=== PATIENT | female | born 1990 | race Caucasian/White ===

== ENCOUNTER 2016-11-04 17:27 | Emergency (ER) | payer OTHER ==
[~2016-11-04] VITALS: Ht 165.1 cm; Wt 56.6 kg
[2016-11-04 18:30] LABS: HEMATOCRIT 38.4 % (36.0-46.0); MCH 30.2 PG (29.0-34.0); MCHC 35.7 G/DL (30.0-36.0); MCV 84.8 FL (83-99); MEAN PLAT.VOLUME 10.1 uM^3 (9.5-12.4); PLATELET COUNT 127 K/uL (156-360); RBC DIS.WIDTH-CV 11.9 % (11.8-14.6); RBC DIS.WIDTH-SD 36.3 % (39-53); RED BLOOD COUNT 4.53 M/uL (3.80-5.20); WHITE BLOOD COUNT 7.4 K/uL (4.1-10.2)
[2016-11-04 18:44] LABS: ADD MIUA? YES; BILIRUBIN NEGATIVE; BLOOD MODERATE; COLOR YELLOW ((YELLOW)); GLUCOSE (STRIP) NEGATIVE; KETONES 5; LEUKOCYTES TRACE; NITRITE NEGATIVE; PROTEIN (STRIP) 100; SPECIFIC GRAVITY 1.029 (1.000-1.030); UROBILINOGEN 0.2 MG/DL (0.2-1.0)
[2016-11-04 18:44] LABS: CHLORIDE 107 mEq/L (99-109); POTASSIUM 3.8 mEq/L (3.7-5.4); SODIUM 138 mEq/L (136-147)
[2016-11-04 18:46] LABS: GLUCOSE 128 mg/dL (70-99)
[2016-11-04 18:48] LABS: ANION GAP 7 MEQ/L (2-14)
[2016-11-04 18:50] LABS: ALKALINE PHOSPHATASE 57 IU/L (3-129); GFR ESTIMATE (CALCULATED) > 59 mL/min/
[2016-11-04 18:51] LABS: UREA NITROGEN (BUN) 10 mg/dL (9-23)
[2016-11-04 18:53] LABS: LIPASE 12 U/L (1.0-51.0)
[2016-11-04 18:59] LABS: QUANTITATIVE HCG 69.7 MIU/ML
[2016-11-04 19:20] LABS: BACTERIA NONE SEEN /HPF; EPITHELIAL CELLS RARE /HPF; MUCUS 1+ /LPF; RED BLOOD CELLS 0-5 /HPF (0-5); UCUL ADDED? NO
[2016-11-04] MEDS ORDERED: VIBRAMYCIN100 MG PO (20:47)
[2016-11-04] MEDS ORDERED: NORCO 5/3251 TABLET PO (20:47)
[2016-11-05] MEDS ORDERED: GLUCOPHAGE XR,500 MG PO (00:03)
[2016-11-05] MEDS ORDERED: PROVERA,CYCRIN10 MG PO (00:04)
[2016-11-05] MEDS ORDERED: PRENATAL TABLE1 EAC3 PO (00:04)
[2016-11-05] MEDS ORDERED: ADVIL200 MG PO (00:06)
[2016-11-05 01:28] VITALS: BP 110/59
== END 2016-11-05 01:30 | disposition home or self-care (01) ==
LOC: RME 17:27 → EME 17:27 → RME 11-05 01:30
PROVIDERS: Physician Assistant Medical
DX: O03.0 Genital tract and pelvic infection following incomplete spontaneous abortion (principal); O03.4 Incomplete spontaneous abortion without complication
CPT/HCPCS: 76801; 76857; 80053; 81003; 83605; 83690; 84702; 85027; 87040; 88305; 99281; 99285; J0696; J2270; J7030

== ENCOUNTER 2017-11-27 07:52 | Inpatient (IN) | payer OTHER ==
[~2017-11-27] VITALS: Ht 165.1 cm; Wt 76.7 kg
[2017-11-27] VITALS (10 sets, daily range): BP systolic 118–138; BP diastolic 73–88
[~2017-11-27 07:52] MED LIST: ADVIL200 MG PO; GLUCOPHAGE XR,500 MG PO; NORCO 5/3251 TABLET PO; PRENATAL TABLE1 EAC3 PO; PROVERA,CYCRIN10 MG PO; VIBRAMYCIN100 MG PO
[2017-11-27 10:27] LABS: BASOPHIL (%) 0.3 % (0-1); EOSINOPHIL (%) 0.8 % (0-5); EOSINOPHIL COUNT 0.1 K/uL (0-0.3); HEMATOCRIT 35.9 % (36.0-46.0); HEMOGLOBIN 12.6 G/DL (11.9-15.5); IMMATURE GRANULOCYTE (%) 0.4 % (0.0-0.7); LYMPHOCYTE (%) 26.4 % (15-42); MCH 30.7 PG (29.0-34.0); MCHC 35.1 G/DL (30.0-36.0); MCV 87.6 FL (83-99); MONOCYTE (%) 8.6 % (3-12); MONOCYTE COUNT 0.6 K/uL (0-0.8); NEUTROPHIL (%) 63.5 % (45-76); NEUTROPHIL COUNT 4.7 K/uL (1.8-6.4); PLATELET COUNT 129 K/uL (156-360); RBC DIS.WIDTH-CV 13.2 % (11.8-14.6); RBC DIS.WIDTH-SD 42.4 % (39-53); WHITE BLOOD COUNT 7.4 K/uL (4.1-10.2)
[2017-11-27 11:00] LABS: AMPHETAMINE NEGATIVE (500 ng/mL); BARBITURATES NEGATIVE (200 ng/mL); BENZODIAZEPINES NEGATIVE (150 ng/mL); BUPRENORPHINE NEGATIVE (10 ng/mL); COCAINE NEGATIVE (150 ng/mL); METHADONE NEGATIVE (200 ng/mL); METHAMPHETAMINE NEGATIVE (500 ng/mL); OPIATES (MORPHINE) NEGATIVE (100 ng/mL); OXYCODONE NEGATIVE (100 ng/mL); PHENCYCLIDINE NEGATIVE (25 ng/mL); PROPOXYPHENE NEGATIVE (300 ng/mL); THC CANNABINOIDS NEGATIVE (50 ng/mL); TRICYCLIC ANTIDEPRESSANTS NEGATIVE (300 ng/mL)
[2017-11-28 06:40] LABS: BASOPHIL (%) 0.2 % (0-1); EOSINOPHIL (%) 0.3 % (0-5); HEMATOCRIT 36.4 % (36.0-46.0); HEMOGLOBIN 12.3 G/DL (11.9-15.5); IMMATURE GRANULOCYTE (%) 0.4 % (0.0-0.7); LYMPHOCYTE (%) 24.1 % (15-42); LYMPHOCYTE COUNT 2.8 K/uL (1.0-2.8); MCH 30.1 PG (29.0-34.0); MCHC 33.8 G/DL (30.0-36.0); MONOCYTE (%) 7.1 % (3-12); MONOCYTE COUNT 0.8 K/uL (0-0.8); NEUTROPHIL (%) 67.9 % (45-76); NEUTROPHIL COUNT 7.8 K/uL (1.8-6.4); PLATELET COUNT 147 K/uL (156-360); RBC DIS.WIDTH-CV 13.6 % (11.8-14.6); RED BLOOD COUNT 4.09 M/uL (3.80-5.20); WHITE BLOOD COUNT 11.5 K/uL (4.1-10.2)
[2017-11-29 07:05] VITALS: BP 125/80
== END 2017-11-29 12:51 | disposition home or self-care (01) | DRG 775 ==
LOC: LDRP-OP → 2WEST 07:53 → LDRP-OP 12:06 → 2WEST 14:00
PROVIDERS: Advanced Practice Midwife
DX: O70.1 Second degree perineal laceration during delivery (principal); O77.0 Labor and delivery complicated by meconium in amniotic fluid; O48.0 Post-term pregnancy; O99.824 Streptococcus B carrier state complicating childbirth; E28.2 Polycystic ovarian syndrome; Z3A.41 41 weeks gestation of pregnancy; Z37.0 Single live birth
CPT/HCPCS: 85025; J7120